=== PATIENT | female | born 1980 | race Hispanic/Latino ===

== ENCOUNTER → 2020-01-23 09:56 | Outpatient (CLI) | payer OTHER, SELFPAY ==
--- NOTE | 2020-01-23 | DI.US.S_ITS ---
PROCEDURE: US OB >= 14 WEEKS FETUS INDICATIONS: ANATOMY SCAN OUTSIDE/PRIOR DATING DATA: Last menstrual period (LMP): 09/08/19. LMP-based estimated date of delivery (NATO): 06/14/20. First dating scan (date and location): 11/03/19, [facility]. Estimated date of delivery (NATO) from first dating scan: 06/10/20. TECHNIQUE: Real-time scanning was performed of the fetus, with image documentation and biometric measurements. COMPARISON: [facility] ultrasound 11/03/19 FINDINGS: General: A single live intrauterine gestation is present. Presentation: Variable. Placenta: Placental position is anterior, without previa. Amniotic fluid index: 15.9 cm, normal range is 5-24 cm. heart rate: 139 beats per minute. Maternal cervical canal: 4.5 cm long. Normal lower limit is 2.5 cm. biometrics: Biparietal diameter: 4.7 cm equals 20 weeks Head circumference: 17.4 cm equals 20 weeks Abdominal circumference: 13.2 cm equals 20 weeks 3 days Femur length: 3.3 cm equals 20 weeks 4 days Estimated gestational age from initial scan: 20 weeks 1 day Composite gestational age from present scan: 20 weeks 2 days Estimated weight and percentile: 344 g, 54th percentile Measurement variability for biometric dating: +/- 7 days from 14 weeks to 15 weeks 6 days gestation, +/- 10 days from 16 weeks to 21 weeks 6 days gestation, +/- 2 weeks from 22 weeks to 27 weeks 6 days gestation, +/- 3 weeks for 28 weeks gestation or later. weight reference: 4500 g or EFW >90/95% is considered macrosomia or large for gestational age. EFW <10% is small for gestational age. EFW 5% or less is considered intra-uterine growth restriction. Anatomic survey: Neuro: Ventricles are non-dilated at less than 10 mm. Cisterna magna is normal at 3-11 mm. Cerebellum is normal in size and morphology. Nuchal skin fold: Normal at less than 6 mm between 14-21 weeks gestational age. Face: Nose and lips, facial profile are normal. Spine: No evidence for spina bifida. Heart: 4-chambered heart is present, with normal ventricular outflow tracts. Incidental note is made of an echogenic cardiac focus within the left ventricle. Diaphragm: Diaphragm is intact. Stomach: Left-sided stomach is present. Kidneys: No hydronephrosis. Normal is less than 5 mm in 2nd trimester, less than 7 mm in 3rd trimester. Cord: 3-vessel cord has orthotopic insertion. Bladder: Normal in size. Extremities: All 4 extremities identified. IMPRESSION: A single live intrauterine is seen. Normal interval growth when compared to the prior ultrasound examination. A cardiac echogenic focus is incidentally noted. This is most typically a benign, incidental finding. However, this can be seen in patients with chromosomal abnormalities. No forest anatomic abnormalities are identified. Dictated by: Mike Terrell M.D. on 01/23/2020 at 11:33 Approved by: Mike Terrell M.D. on 01/23/2020 at 11:38
== END ==
PROVIDERS: Referring Provider Midwife; Visit Provider Midwife
DX: Z36.89 Encounter for other specified antenatal screening (principal); Z3A.20 20 weeks gestation of pregnancy
CPT/HCPCS: 76811

== ENCOUNTER → 2020-03-22 09:49 | Outpatient (CLI) | payer OTHER, SELFPAY ==
--- NOTE | 2020-03-22 | DI.US.S_ITS ---
PROCEDURE: US OB FOLLOW UP INDICATIONS: RE EVALUATION OF ECHOGENIC FOCUS OUTSIDE/PRIOR DATING DATA: Last menstrual period (LMP): 09/08/19. LMP-based estimated date of delivery (NATO): 06/14/20. First dating scan (date and location): 11/03/19, [facility]. Estimated date of delivery (NATO) from first dating scan: 06/10/20.. TECHNIQUE: Real-time scanning was performed of the fetus, with image documentation and biometric measurements. Endovaginal scanning: No COMPARISON: None. FINDINGS: General: A single living intrauterine gestation is present. Presentation: Vertex. Placenta: Placental position is anterior, without previa. Amniotic fluid index: 10.6 cm, normal range is 5-24 cm. heart rate: 136 beats per minute. Maternal cervical canal: 3.6 cm long. Normal lower limit is 2.5 cm. biometrics: Biparietal diameter: 29 weeks 1 day Head circumference: 29 weeks 0 days Abdominal circumference: 28 weeks 1 day Femur length: 29 weeks 1 day Estimated gestational age from initial scan: 28 weeks 4 days Composite gestational age from present scan: 28 weeks 6 days Estimated weight and percentile: 1261 g; 41st percentile. Measurement variability for biometric dating: +/- 7 days from 14 weeks to 15 weeks 6 days gestation, +/- 10 days from 16 weeks to 21 weeks 6 days gestation, +/- 2 weeks from 22 weeks to 27 weeks 6 days gestation, +/- 3 weeks for 28 weeks gestation or later. weight reference: 4500 g or EFW >90/95% is considered macrosomia or large for gestational age. EFW <10% is small for gestational age. EFW 5% or less is considered intra-uterine growth restriction. Other: Left ventricular intracardiac focus present. IMPRESSION: 1. Single living IUP redemonstrated and interval growth is normal. 2. Persistent solitary left ventricular intracardiac focus redemonstrated. Dictated by: Estuardo Bedolla [facility] Interpreted: Nataliya Zamora MD on 03/22/2020 at 10:56 Approved by: Nataliya Zamora MD, PhD on 03/22/2020 at 13:40
== END ==
PROVIDERS: Referring Provider Midwife; Visit Provider Midwife
DX: Z36.2 Encounter for other antenatal screening follow-up (principal); Z3A.28 28 weeks gestation of pregnancy
CPT/HCPCS: 76816

== ENCOUNTER → 2020-06-13 16:30 | Outpatient (CLI) | payer OTHER, SELFPAY ==
--- NOTE | 2020-06-13 | DI.US.S_ITS ---
PROCEDURE: US OB LIMITED INDICATIONS: ANIYAH OUTSIDE/PRIOR DATING DATA: Last menstrual period (LMP): 09/08/19 . LMP-based estimated date of delivery (NATO): 06/14/20 . First dating scan (date and location): 11/03/19 . Estimated date of delivery (NATO) from first dating scan: 06/10/20 . TECHNIQUE: Real-time scanning was performed of the fetus, with image documentation and biometric measurements. Endovaginal scanning: Not performed COMPARISON: [facility], OB FOLLOW UP, 03/22/2020, 10:03. [facility], OB >= 14 WEEKS FETUS, 01/23/2020, 10:31. [place] [email or web address], , OB < 14 WEEKS, 11/03/2019, 11:09. FINDINGS: General: A single living intrauterine gestation is present. Placenta: Placental position is anterior , without previa. Amniotic fluid index: 5.9 cm, normal range is 5-24 cm. Largest pocket measures 2.3 cm. heart rate: 136 beats per minute. Maternal cervical canal: 3.3 cm long. Estimated gestational age from initial scan: 40 weeks 3 days. Other: Not applicable. IMPRESSION: Limited examination demonstrating single living intrauterine fetus. ANIYAH measures 5.9 cm. Dictated by: Sukh Nieves M.D. on 06/14/2020 at 9:28 Approved by: Sukh Nieves M.D. on 06/14/2020 at 9:31
== END ==
PROVIDERS: Referring Provider Midwife; Visit Provider Midwife
DX: Z36.89 Encounter for other specified antenatal screening (principal); Z3A.40 40 weeks gestation of pregnancy
CPT/HCPCS: 76815